=== PATIENT | female | born 1930 | race Caucasian/White ===

== ENCOUNTER 2017-02-01 10:04 | Outpatient (CLI) | payer MEDICARE, OTHER ==
[2017-02-01 15:21] LABS: Bilirubin Negative (Negative); Blood, Urine Negative (Negative); Glucose, Urine (Dipstick) Negative (Negative); Ketone, Urine Negative (Negative); Nitrite Negative (Negative); Protein, Urine (Dipstick) Negative (Neg-Trace); Urobilinogen 0.2 mg/dL (0.2-1.0)
[2017-02-01 15:22] LABS: Bacteria/HPF None Seen HPF (None Seen); Hyaline Casts/LPF 0-3 HYALINE CAST LPF (0-3 Hyaline); Squamous Epithelial 0-3 HPF (0-3); WBC/HPF 0-3 HPF (0-3)
--- NOTE | 2017-02-02 10:01 | EKG ---
Test Reason : ? SURGICAL WORKUP Blood Pressure : / mmHG Vent. Rate : 087 BPM Atrial Rate : 087 BPM P-R Int : 142 ms QRS Dur : 072 ms QT Int : 388 ms P-R-T Axes : 080 084 067 degrees QTc Int : 466 ms Normal sinus rhythm Normal ECG When compared with ECG of 09-NOV-2006 09:51, No significant change was found Confirmed by SY JEREZ ([id number]) on 02/02/2017 10:00:53 AM Referred By: AMBROCIO Confirmed By:SY JEREZ
== END 2017-02-01 10:05 | disposition home or self-care (01) ==
LOC: EKG 10:04
PROVIDERS: ATTEND Urology
DX: Z01.818 Encounter for other preprocedural examination (principal); N21.0 Calculus in bladder; N30.20 Other chronic cystitis without hematuria; R35.0 Frequency of micturition
CPT/HCPCS: 81001; 87077; 87086; 87186; 93005; 93010

== ENCOUNTER 2017-02-04 10:53 | Outpatient (CLI) | payer MEDICARE, OTHER ==
[2017-02-04 12:04] LABS: Hematocrit 44.5 % (36.0-47.0); Mean Platelet Volume 6.8 fL (7.4-10.4); Red Blood Cell (RBC) Count 4.63 mill/uL (4.20-5.40); White Blood Cell (WBC) Count 9.6 thou/uL (4.8-10.8)
[2017-02-04 12:20] LABS: Anion Gap 15 mmol/L (10-20); BUN (Urea Nitrogen) 18 mg/dL (9.8-20.1); Calc. Creatinine Clearance 0 mL/min (70-130); Calcium 9.6 mg/dL (7.8-10.44); Carbon Dioxide 22 mmol/L (23-31); Chloride 104 mmol/L (98-107); Estimated GFR-MDRD 75
== END 2017-02-04 10:54 | disposition home or self-care (01) ==
LOC: LABBT 10:53
PROVIDERS: ATTEND Urology
DX: Z01.818 Encounter for other preprocedural examination (principal); N21.0 Calculus in bladder
CPT/HCPCS: 80048; 85027

== ENCOUNTER 2017-02-09 05:40 | Day surgery (SDC) | payer MEDICARE, OTHER ==
[2017-02-04 11:07] VITALS: BMI 25.8
[2017-02-09] MEDS ORDERED: Vancomycin HCl 500 MG VIAL ONE (07:29)
[2017-02-09] MEDS ORDERED: Fentanyl 100 MCG/2 ML VIAL ONE (09:01)
[2017-02-09] MEDS ORDERED: Ondansetron HCl/PF 4 MG/2 ML Vial ONE (09:27)
[2017-02-09] MEDS ORDERED: Propofol 200 MG/20 ML VIAL ONE (09:27)
[2017-02-09] MEDS ORDERED: Lidocaine 1% PF 5 ML VIAL ONE (09:27)
[2017-02-09] MEDS ORDERED: Dexamethasone 20 MG/5 ML VIAL ONE (09:27)
--- NOTE | 2017-02-09 11:18 | OP ---
DATE OF PROCEDURE: 02/09/2017 PREOPERATIVE DIAGNOSIS: Bladder stone urinary tract infection. POSTOPERATIVE DIAGNOSIS: Bladder stone urinary tract infection. PROCEDURE PERFORMED: Cystolitholapaxy with holmium laser lithotripsy. SURGEON: Dr. Ventura. ANESTHESIA: General with laryngeal mask airway. FINDINGS: Adequate fragmentation of stone and adequate irrigation of all the fragments out. COMPLICATIONS: None. ESTIMATED BLOOD LOSS: None. DRAINS: Drain remaining was an 18 Bruneian Madden. INDICATIONS: The patient is an 86-year-old female who is followed in the office for UTIs and cystos copy revealed a bladder stone, so she was set up for cystolitholapaxy. TECHNIQUE: The patient was brought in the room by anesthesia lying on table in supine position. Af ter receiving general anesthetic, her legs were placed in lithotomy position and her perineum was pr epped and draped in sterile fashion. Using a 22-Bruneian cystoscope and a 30-degree lens, it was namita ersed and the bladder inspected. No lesions were noted. There was a large stone approximately 2-3 cm in diameter noted at the base of the bladder. A 4 x 4 was placed in the vagina to elevate her cy stocele to aid in localization of the stone, so that it would not be trapped in a sulcus. Then, the laser lithotripsy was used and bursted into 4-5 fragments, which were all removed with a 25-Bruneian cystoscope. The 22 was put back in and small fragments were noted with some stone debris, so this wa s evacuated out with the Ellik. A final look in revealed no concerning fragments or debris and so t he cystoscope was removed in its entirety and an 18 Bruneian Madden was placed to gravity. The patient tolerated the procedure well and was then awakened and transferred back in stable condition.
[2017-02-12 12:14] LABS: CA Oxalate Dihydrate 20 % (.); CA Oxalate Monohydrate 70 % (.); CA Phosphate 10 % (.); Color Brown (.)
== END 2017-02-09 12:00 | disposition home or self-care (01) ==
LOC: SDC 05:40
PROVIDERS: ATTEND Urology
PROC: 0TCB8ZZ Extirpation of Matter from Bladder, Via Natural or Artificial Opening Endoscopic (ICD-10-PCS; principal; 2017-02-09)
DX: N21.0 Calculus in bladder (principal); N30.90 Cystitis, unspecified without hematuria; K58.9 Irritable bowel syndrome, unspecified; E11.9 Type 2 diabetes mellitus without complications; E78.5 Hyperlipidemia, unspecified; J30.2 Other seasonal allergic rhinitis; M10.9 Gout, unspecified; Z90.710 Acquired absence of both cervix and uterus; Z90.49 Acquired absence of other specified parts of digestive tract; Z98.49 Cataract extraction status, unspecified eye; Z79.84 Long term (current) use of oral hypoglycemic drugs; Z79.818 Long term (current) use of other agents affecting estrogen receptors and estrogen levels; Z88.1 Allergy status to other antibiotic agents; Z88.4 Allergy status to anesthetic agent; Z88.2 Allergy status to sulfonamides; Z88.5 Allergy status to narcotic agent; Z88.6 Allergy status to analgesic agent; Z88.8 Allergy status to other drugs, medicaments and biological substances
CPT/HCPCS: 82365; 88300; J1100; J2001; J2405; J2704; J3010; J3370

== ENCOUNTER 2017-04-13 08:00 | Outpatient (CLI) | payer MEDICARE, OTHER | END 2017-04-13 08:01 | disposition home or self-care (01) | LOC: BICMAMMO 08:00 | PROVIDERS: ATTEND Family Medicine | DX: Z53.9 Procedure and treatment not carried out, unspecified reason (principal) ==

== ENCOUNTER 2017-04-27 07:50 | Outpatient (CLI) | payer MEDICARE, OTHER | END 2017-04-27 07:51 | disposition home or self-care (01) | LOC: BICMAMMO 07:50 | PROVIDERS: ATTEND Family Medicine | DX: Z12.31 Encounter for screening mammogram for malignant neoplasm of breast (principal); Z80.3 Family history of malignant neoplasm of breast | CPT/HCPCS: 77063; G0202; 77067 ==

== ENCOUNTER 2018-07-09 17:25 | Observation (INO) | payer MEDICARE, OTHER ==
[2018-07-09 18:09] LABS: #Eosinphils 0.2 thou/uL (0.0-0.7); #Monocytes 0.5 thou/uL (0.11-0.59); #Neutrophils 5.8 thou/uL (1.40-6.50); %Basophils 0.5 % (0.0-1.0); %Eosinophils 2.7 % (0.0-10.0); %Lymphocytes 13.5 % (21.0-51.0); %Neutrophils 76.2 % (42.0-75.0); Hemoglobin 13.6 g/dL (12.0-16.0); Mean Corpuscular HGB CONC 33.4 g/dL (32.0-36.0); Mean Corpuscular Hemoglobin 31.3 pg (27.0-31.0); Mean Corpuscular Volume 93.6 fL (78.0-98.0); Mean Platelet Volume 7.6 fL (7.4-10.4); Platelet Count 226 thou/uL (130-400); RBC Distribution Width 11.4 % (11.5-14.5); Red Blood Cell (RBC) Count 4.35 mill/uL (4.20-5.40); White Blood Cell (WBC) Count 7.7 thou/uL (4.8-10.8)
[2018-07-09 18:17] LABS: PTT 27.7 SEC (22.9-36.1); Prothrombin Time 13.6 SEC (12.0-14.7)
[2018-07-09 18:31] LABS: ALT (SGPT) 16 U/L (8-55); AST (SGOT) 15 U/L (5-34); Alkaline Phosphatase 88 U/L (40-150); Anion Gap 16 mmol/L (10-20); BUN (Urea Nitrogen) 19 mg/dL (9.8-20.1); Bilirubin, Total 0.4 mg/dL (0.2-1.2); CK (CPK) 43 U/L (29-168); Calc. Creatinine Clearance 0 mL/min (70-130); Calcium 9.9 mg/dL (7.8-10.44); Carbon Dioxide 23 mmol/L (23-31); Chloride 105 mmol/L (98-107); Estimated GFR-MDRD 63; Globulin 2.9 g/dL (2.4-3.5); Glucose 153 mg/dL (83-110); Lipase 33 U/L (8-78); Potassium 4.3 mmol/L (3.5-5.1); Protein, Total 6.9 g/dL (6.0-8.3); Sodium 140 mmol/L (136-145)
--- NOTE | 2018-07-09 19:00 | RAD ---
AP VIEW CHEST 07/09/18 HISTORY: Altered mental status. AP view chest is obtained on 07/09/18. EKG leads seen over the chest. calcification of the aorta is seen. The lungs are well aerated. No ev idence of active intrathoracic disease seen. No evidence of effusions, pneumonia or pneumothorax seen . IMPRESSION: Calcification of the aorta otherwise unremarkable AP view chest. POS: [facility]
[2018-07-09] MEDS ORDERED: Pantoprazole 40 MG VIAL ONE (19:17)
[2018-07-09 20:13] LABS: Bilirubin Negative (Negative); Blood, Urine Moderate (Negative); Clarity CLEAR (Clear); Glucose, Urine (Dipstick) Negative (Negative); Leukocyte Trace (Negative); Nitrite Negative (Negative); Protein, Urine (Dipstick) Negative (Neg-Trace); Urobilinogen 0.2 mg/dL (0.2-1.0)
[2018-07-09 20:16] LABS: Bacteria/HPF 2+ HPF (None Seen); Hyaline Casts/LPF 0-3 HYALINE CAST LPF (0-3 Hyaline); Pathc Cast-AUWi Flag 0.29 (0-2.49); RBC/HPF 0-3 HPF (0-3); Squamous Epithelial 0-3 HPF (0-3); WBC/HPF 0-3 HPF (0-3)
[2018-07-09] MEDS ORDERED: Ondansetron PF 4 MG/2 ML Vial IVP PRN (20:58)
[2018-07-09] MEDS ORDERED: Ondansetron ODT 4 MG TAB SL PRN (20:58)
[2018-07-09] MEDS ORDERED: Dextrose 5% in Water 1,000 ML IV PRN (21:07)
[2018-07-09] MEDS ORDERED: Dextrose 50% Abboject 50 ML SYRINGE SLOW IVP PRN (21:07)
[2018-07-09] MEDS ORDERED: HumaLOG 300 UNITS/3 ML VIAL SC PRN ×2 (21:07)
[2018-07-09] MEDS ORDERED: Zolpidem Tartrate 5 MG TAB PO SCH (22:00)
[2018-07-09] MEDS: Zolpidem Tartrate 5 MG TAB PO SCH (22:04)
[2018-07-09 22:42] LABS: Hemoglobin 12.2 g/dL (12.0-16.0)
--- NOTE | 2018-07-10 01:55 | HP ---
CHIEF COMPLAINT: Rectal bleeding. HISTORY OF PRESENT ILLNESS: Ms. Best is a pleasant 88-year-old woman who presents with complaints of rectal bleeding that started this afternoon. She said she went to urinate and noted blood after wiping. She was able to determine it was from the rectum. She began to experience continuous bleeding and denies having any bowel movements. She passed some bright red blood and a few blood clots. Following arrival to the ED , she was given pantoprazole 40 mg IV. The patient states her bleeding settled shortly after. She denies any associated abdominal or rectal pain. She has not experienced any nausea, vomiting, or hematemesis. She reports a history of ruptured polyp in the past and states her last colonoscopy was approximately 5 years ago. REVIEW OF SYSTEMS: The patient denies having any fevers, chills, or sweats. Denies having any recent changes with her appetite and has not had any changes in her weight. Denies having any headaches or dizziness. No shortness of breath. Denies issues with constipation or diarrhea. Also denies having any urinary symptoms. All other review of systems are negative. PAST MEDICAL HISTORY: 1. Gallstones. 2. Type 2 diabetes. 3. Hypertension. PAST SURGICAL HISTORY: 1. Cholecystectomy. 2. Appendectomy. 3. Hysterectomy. 4. Surgery due to ruptured polyp. SOCIAL HISTORY: She denied any alcohol use to me; however, per ED note, it states she drinks daily, less than 5 drinks per day. Denies any drug use and denies any tobacco use. ALLERGIES: ACETAMINOPHEN, AZITHROMYCIN, BETAMETHASONE, BUPIVACAINE, CIPROFLOXACIN, CODEINE, CYPROHEPTADINE, DEMECLOCYCLINE, EPINEPHRINE, LIDOCAINE, SULFA, ORAHUT CURRENT MEDICATIONS: Patient does not recall, her son will bring her list. PHYSICAL EXAMINATION: GENERAL: The patient appears well developed, well nourished, and in no acute distress. VITAL SIGNS: Temperature 98.2, pulse 86, respirations 20, O2 saturation 100% on room air, and blood pressure 178/80. HEENT: Normocephalic and atraumatic. Pupils are equal, round, and reactive to light. Sclerae icterus. Oropharynx is clear. NECK: Supple. No lymphadenopathy. LUNGS: Clear to auscultation bilaterally. CARDIAC: Regular rate and rhythm. ABDOMEN: Soft, nontender, and nondistended. Normoactive bowel sounds present. No guarding or rigidity. EXTREMITIES: Without edema or swelling. NEUROLOGIC: Alert and oriented x3. SKIN: Without rash, pallor, or jaundice. RECTAL: Deferred as the patient states she was examined in the ED. I did receive confirmation from ED physician that she had bright red blood per rectum on examination with no pain. She was noted to have external hemorrhoids. No palpable masses in the rectal vault. LABORATORY DATA: White blood cell count 7.7, hemoglobin 13.6, hematocrit 40.7, and platelets 226. PT 13.6, INR 1.0, and PTT 27.7. Sodium 140, potassium 4.3, anion gap 16, BUN 19, creatinine 0.86, GFR 63, glucose 153, calcium 9.9. Total bilirubin 0.4, AST 15, ALT 16, and alkaline phosphatase 88. Creatine kinase 43. Troponin negative. BNP 43.7, lipase 33. Urinalysis notable for moderate blood, trace leukocyte esterase, 2+ bacteria. Sample likely contaminated. She has no urinary symptoms. IMAGING DATA: Chest x-ray showed calcification of the aorta, otherwise was unremarkable. IMPRESSION AND PLAN: Ms. Best is a very pleasant 88-year-old woman being admitted for management of the following; 1. Rectal bleeding. At present, the rectal bleeding has settled. Her hemoglobin was 13.6. We will continue to monitor her hemoglobin and hematocrit. Consultation placed with Gastroenterology. 2. Hypertension. We will resume her home medications and monitor blood pressure. 3. Type 2 diabetes mellitus. We will resume home medications and monitor glucose. 4. Gastrointestinal prophylaxis. 5. Deep venous thrombosis prophylaxis with mechanical sequential compression devices only. No anticoagulation given active bleeding. 6. Per the patient, advanced directives are in place. Her surrogate decision maker is her son, Jhony Best, who can be reached at [phone]. The patient's case was discussed with Dr. Valerio, who agrees with plan of care as described above. Job ID: [id number] [facility]
[2018-07-10 05:29] LABS: #Eosinphils 0.3 thou/uL (0.0-0.7); #Lymphocytes 1.6 thou/uL (1.20-3.40); #Monocytes 0.7 thou/uL (0.11-0.59); #Neutrophils 4.2 thou/uL (1.40-6.50); %Basophils 0.6 % (0.0-1.0); %Eosinophils 4.5 % (0.0-10.0); %Lymphocytes 23.1 % (21.0-51.0); %Monocytes 9.9 % (0.0-10.0); Hemoglobin 11.1 g/dL (12.0-16.0); Mean Corpuscular HGB CONC 32.7 g/dL (32.0-36.0); Mean Corpuscular Hemoglobin 31.5 pg (27.0-31.0); Mean Corpuscular Volume 96.5 fL (78.0-98.0); Mean Platelet Volume 7.4 fL (7.4-10.4); Platelet Count 194 thou/uL (130-400); RBC Distribution Width 11.3 % (11.5-14.5); Red Blood Cell (RBC) Count 3.52 mill/uL (4.20-5.40); White Blood Cell (WBC) Count 6.7 thou/uL (4.8-10.8)
[2018-07-10 05:45] LABS: Anion Gap 11 mmol/L (10-20); BUN (Urea Nitrogen) 14 mg/dL (9.8-20.1); Calc. Creatinine Clearance 0 mL/min (70-130); Calcium 8.8 mg/dL (7.8-10.44); Carbon Dioxide 27 mmol/L (23-31); Chloride 109 mmol/L (98-107); Estimated GFR-MDRD 79; Glucose 108 mg/dL (83-110); Potassium 4.2 mmol/L (3.5-5.1); Sodium 143 mmol/L (136-145)
[2018-07-10] MEDS: Sodium Chloride 0.9% 1,000 ML IV SCH ×2 (05:55→17:14)
[2018-07-10] MEDS ORDERED: Aspirin 81 mg Enteric Coated Tablet PO SCH (09:00)
[2018-07-10] MEDS ORDERED: Lisinopril 2.5 MG TAB PO SCH (09:00)
[2018-07-10] MEDS: metFORMIN 500 MG TAB PO SCH ×2 (09:27→17:01)
[2018-07-10] MEDS: Trospium 20 MG TAB PO SCH ×2 (09:27→20:21)
[2018-07-10] MEDS: Cetirizine HCl 10 MG TAB PO SCH (09:27)
[2018-07-10] MEDS: Famotidine/PF 20 mg/2ml Vial SLOW IVP SCH ×2 (09:27→20:21)
[2018-07-10 10:13] VITALS: BMI 25.1
[2018-07-10 13:25] LABS: Hemoglobin 11.6 g/dL (12.0-16.0)
--- NOTE | 2018-07-10 17:31 | PDOC.PN ---
- Subjective Encounter Start Date: 07/10/18 Encounter Start Time: 10:00 The patient is a very pleasant 88 year old female with PMH significant for HTN, Type II DM, and Hx of colon polyp in the past, who presented to the hospital with complaints of rectal bleeding. She did not have any bleeding events overnight. She has denies any CP, SOB, dizziness, or lightheadedness. She has ambulated to the bathroom with out issue. Son is at bedside and care discussed. - Objective Vital Signs & Weight: Vital Signs (12 hours) Temp Pulse Resp BP BP Pulse Ox 07/10/18 15:58 98.0 F 85 12 164/84 H 98 07/10/18 11:31 97.9 F 77 16 163/80 H 92 L 07/10/18 09:27 83 161/88 H 07/10/18 08:21 98.2 F 83 14 161/88 H 99 Weight Weight 146 lb 4.8 oz Result Diagrams: 07/10/18 13:11 07/10/18 04:39 Additional Labs: Accuchecks 07/10/18 07/10/18 15:48 11:07 POC Glucose 117 H 117 H Phys Exam - Physical Examination HEENT: PERRLA Neck: no nodes, no JVD Respiratory: no wheezing, no rales, no rhonchi, clear to auscultation bilateral Cardiovascular: RRR, no significant murmur Gastrointestinal: soft, non-tender, no distention Musculoskeletal: no edema, pulses present Neurological: non-focal Lymphatic: no nodes Psychiatric: normal affect, A&O x 3 Skin: no rash Dx/Plan (1) Hemorrhage of anus and rectum Code(s): K62.5 - HEMORRHAGE OF ANUS AND RECTUM Status: Acute (2) External hemorrhoids Code(s): K64.4 - RESIDUAL HEMORRHOIDAL SKIN TAGS Status: Acute (3) Type II diabetes mellitus Status: Chronic Qualifiers: Diabetes mellitus complication status: without complication (4) Hypertension Code(s): I10 - ESSENTIAL (PRIMARY) HYPERTENSION Status: Chronic Qualifiers: Hypertension type: essential hypertension Qualified Code(s): I10 - Essential (primary) hypertension (5) Anemia Code(s): D64.9 - ANEMIA, UNSPECIFIED Status: Acute Qualifiers: Anemia type: iron deficiency - Plan * . The patient is a pleasant 88 year old who has presented with painless rectal bleeding; her Hgb has drifted from 13.6 to 11.6, although some of this may be delutional. She had had no further bleeding up until this afternoon, when she did pass some blood in her stool. Dr. Ramey has seen the patient and recommended serial Hgb and to watch overnight. She has been placed on clear liquid diet. Given her advanced age, she is at high risk for decompensation. She has been hypertensive in the 160s; will continue to titrate BP meds as needed. Review of Systems - Review of Systems Constitutional: negative: fever, chills, sweats ENT: negative: Ear Pain, Ear Discharge Respiratory: negative: Cough, Shortness of Breath Cardiovascular: negative: chest pain, palpitations, light headedness Gastrointestinal: Hematochezia Genitourinary: negative: Dysuria, Frequency Skin: negative: Rash Neurological: negative: Weakness, Numbness - Medications/Allergies Allergies/Adverse Reactions: Allergies Allergy/AdvReac Type Severity Reaction Status Date / Time acetaminophen [From Tylenol] Allergy Verified 07/09/18 22:45 azithromycin [From Zithromax] Allergy Verified 07/09/18 22:45 betamethasone Allergy Verified 07/09/18 22:45 [From Celestone] bupivacaine [From Marcaine] Allergy Verified 07/09/18 22:45 ciprofloxacin [From Cipro] Allergy Verified 07/09/18 22:45 codeine Allergy Verified 07/09/18 22:45 cyproheptadine Allergy Verified 07/09/18 22:45 demeclocycline Allergy Verified 07/09/18 22:45 [From Declomycin] epinephrine Allergy Verified 07/09/18 22:45 [From Xylocaine-Epinephrine] lidocaine Allergy Verified 07/09/18 22:45 [From Xylocaine-Epinephrine] Sulfa (Sulfonamide Allergy Verified 07/09/18 22:45 Antibiotics) orahut Allergy Uncoded 07/09/18 22:45 Medications: Current Medications Aspirin (Ecotrin) 81 mg PO DAILY [facility] Last Admin: 07/10/18 11:08 Dose: Not Given Cetirizine HCl (Zyrtec) 10 mg PO DAILY [facility] Last Admin: 07/10/18 09:27 Dose: Not Given Dextrose/Water (Dextrose 50%) 25 gm SLOW IVP PRN PRN PRN Reason: Hypoglycemia Famotidine (Pepcid) 20 mg SLOW IVP BID [facility] Last Admin: 07/10/18 09:27 Dose: 20 mg Glucagon (Glucagon) 1 mg IM PRN PRN PRN Reason: Hypoglycemia Dextrose/Water (D5w) 1,000 mls @ 0 mls/hr IV .Q0M PRN PRN Reason: Hypoglycemia Insulin Human Lispro (Humalog) 0 units SC .MILD SLIDING SCALE PRN PRN Reason: Mild Correctional Scale Insulin Human Lispro (Humalog) 0 units SC .BEDTIME SLIDING SC PRN PRN Reason: Bedtime Correctional Scale Lisinopril (Zestril) 2.5 mg PO DAILY [facility] Last Admin: 07/10/18 09:27 Dose: 2.5 mg Metformin HCl (Glucophage) 1,000 mg PO BID-[facility] Last Admin: 07/10/18 17:01 Dose: 1,000 mg Trospium (Trospium) 20 mg PO BID [facility] Last Admin: 07/10/18 09:27 Dose: Not Given Zolpidem Tartrate (Ambien) 5 mg PO [facility]
--- NOTE | 2018-07-10 19:44 | CON ---
DATE OF CONSULTATION: 07/10/2018 REASON FOR CONSULT: Rectal bleed. HISTORY OF PRESENT ILLNESS: Ms. Violeta Bets is an 88-year-old female, who came to the emergency room yesterday as she had 1 episode of rectal bleeding. She notes that she typically has issues with incontinence of her stools loose, she usually take medicines to keep it a little bit more formed on the constipation side. She reports yesterday afternoon she had a bowel movement that was with no overt constipation or pain or discomfort. When she went to wipe, she notes some blood on the tissue. She wiped several times and kept seeing some blood. She lives alone and she felt fine, but she was not sure what to do. She remembered she had a lifeline, so she called [facility] and they told her they had an ambulance on the way for her. She was brought here to the emergency room. This was at about 3 yesterday afternoon. She reports that she had no further bowel movements after that. At the time it happened, the blood was bright red. There were a few small clots. She had no associated rectal or abdominal pain. She has been n.p.o. since that time. She was admitted about midnight and has had no bleeding since that time. She is on IV fluids at 60 mL an hour and she has received 40 of Protonix once. She has had no episodes of nausea, vomiting, hematemesis, or melena. She had a "ruptured polyp in the past 50 years ago when she was in her 30s". The admission H and P notes she had a colonoscopy about 5 years ago. I described the procedure to her. She states she does not really think she had a colonoscopy 5 years ago. She is not sure she has ever had 1, although she assumes that she had 1 when she had a "ruptured polyp" 50 years ago. At present, Ms. Best is hungry and is without complaints. She has had no bowel movement since admission. REVIEW OF SYSTEMS: Negative for weight loss or abdominal pain. She does have no previous history of constipation. She does have diarrhea and incontinence, her stools were too loose. She usually take fuvp-[id number] medicines for that. She reports she has not seen a no bake molder in the past for this. She has had no weight loss or change in appetite. She has had no fever or chills. No shortness of breath, dyspnea on exertion, syncopal or presyncopal episodes, or seizures. review of system is notable for the fact that she has had some bladder problems in about 2 years ago, had a bladder stone and associated bladder infection. PAST MEDICAL HISTORY: 1. Type 2 diabetes, hypertension, recurrent bladder infections in the past. 2. History of gallstones. 3. History of bladder stones. 4. History of IBS. PAST SURGICAL HISTORY: 1. Cholecystectomy, appendectomy, and hysterectomy. Fifty years ago, she had some type of procedure for a "ruptured polyp" maybe this was a hemorrhoid, it is unclear. 2. She has had bladder surgery for a bladder stone. 3. Benign breast surgery in 2006, cataract surgery also, benign hysterectomy, and benign foot surgery. FAMILY HISTORY: Father had Alzheimer's. Mother had a stroke, hypertension, and heart disease. There is no family history of colorectal cancer or liver disease. SOCIAL HISTORY: She does not smoke. She does drink wine occasionally on weekends. She does not use drugs. PHYSICAL EXAMINATION: GENERAL: The patient is resting comfortably in bed. She is in no distress. She has 2 family members at the bedside, 1 of which is her son. She is alert and oriented to person, place, and time. Seems younger than her stated age. VITAL SIGNS: Temperature is 97.9, she has been afebrile since admission. Pulse 77, blood pressure 161/81, respirations 16, and O2 saturation 99% to 92%. HEENT: Conjunctivae and sclerae are clear. Oropharynx is moist with good color. She does not appear pale. NECK: Supple. There is no adenopathy. There is no JVD. LUNGS: Clear. HEART: Regular rate and rhythm. ABDOMEN: Soft and nontender. No rebound or guarding. RECTAL: Reveals possibly small internal hemorrhoids, but no overt masses or lesions. There is no blood on the examining glove. There is no tenderness noted. LABORATORY STUDIES: Hemoglobin 11.6, it was 11.1 at 4 this morning, it was 12.2 on the 2nd, and initially 13.6 when she presented yesterday. Her baseline hemoglobin back in May was 14 as it was last summer. Chemistries notable for BUN and creatinine are 19 and 0.8 yesterday, and 14 and 0.7 today. Liver function tests normal. Lipase normal. ASSESSMENT AND PLAN: Lower gastrointestinal bleeding with 1 episode of bleeding, now resolved. This is painless. Differential diagnosis would include hemorrhoidal sources, diverticular sources, colitis or malignancy seems less likely. I have talked with the patient and family about options, we could proceed with colonoscopy tomorrow to further evaluate the colon for etiologies or we could wait to see if she has no further bleeding, treat her with topical steroids for possible rectal bleeding and observe and only intervene if she would have further bleeding. She prefers the noninvasive route. Therefore, we will let her eat, Hep-Lock her IV, and recheck her hemoglobin tomorrow. If there is further bleeding, obviously we have to change our plans and then reconsider endoscopy. Job ID: [id number]
[2018-07-10] MEDS: Zolpidem Tartrate 5 MG TAB PO SCH (21:53)
[2018-07-11 06:04] LABS: Hemoglobin 11.8 g/dL (12.0-16.0)
[2018-07-11 06:26] LABS: Iron 71 ug/dL (50-170); Iron Binding Capacity, Total 233 mcg/dL (265-497)
[2018-07-11] MEDS: metFORMIN 500 MG TAB PO SCH (08:31)
[2018-07-11] MEDS: Famotidine/PF 20 mg/2ml Vial SLOW IVP SCH (08:32)
[2018-07-11] MEDS: Cetirizine HCl 10 MG TAB PO SCH (08:32)
[2018-07-11] MEDS ORDERED: Lisinopril 5 MG TAB PO SCH (09:00)
[2018-07-11] MEDS ORDERED: Multivit, Therapeutic 1 TAB PO SCH (09:00)
[2018-07-11] MEDS ORDERED: Cyanocobalamin (Vitamin B-12) 1,000 MCG TAB PO SCH (09:00)
[2018-07-11 11:06] VITALS: BP 139/77; TEMP 97.7
[2018-07-11] MEDS: Trospium 20 MG TAB PO SCH (11:44)
--- NOTE | 2018-07-11 16:17 | PRG ---
DATE OF SERVICE: 07/11/2018 SUBJECTIVE: Ms. Best had no further bleeding. Today, she had a bowel movement with no blood. OBJECTIVE: VITAL SIGNS: Temperature 97.6, pulse 77, blood pressure 139/77. ABDOMEN: Soft, nontender. NEUROLOGIC: She is awake, alert, and oriented to person, place, and time. She lives nearby and wants to go home. LABORATORY DATA: Hemoglobin is 11.8. ASSESSMENT: Lower gastrointestinal bleeding, resolved. This could have been diverticular or hemorrhoidal. The possibility of colon mass is possible, but the type of bleeding she had was painless and lend itself against that. A mild ischemic colitis I guess is always possible, but she again did not have any overt pain with this. PLAN: She can go home on a regular diet. She will follow up with us in our office in 1 week and she has been given bleeding precautions and advised to avoid NSAIDs for at least 2 weeks. Job ID: [id number]
--- NOTE | 2018-07-11 19:42 | DIS ---
DATE OF ADMISSION: 07/09/2018 DATE OF DISCHARGE: 07/11/2018 DISCHARGE DISPOSITION: Home. FOLLOWUP: Follow up with primary care physician, Dr. Trenton Prasad in 1 week. DISCHARGE MEDICATIONS: Same as admission medications. The patient was advised to hold aspirin for a week per GI recommendation. The patient was seen and examined on the day of discharge. Denies any new complaints. No chest pain, shortness of breath, palpitations, or GI bleeding reported. BRIEF HOSPITAL COURSE: The patient is an 88-year-old female with diverticulosis, presented to the emergency room with rectal bleeding. Please refer to the history and physical dated July,, for further details. The patient was admitted to the hospital with a diagnosis of GI bleeding. She was monitored on the medical floor. Her hemoglobin on admission was 13.6, that dropped to 11.1. It has remained stable over 11 over the last 24 hours. She had normal soft bowel movement earlier today without any bleeding. The patient was evaluated by Gastroenterology. Colonoscopy was offered; however, the patient declined. She was advised to hold aspirin for 1 week. She was advised to contact Dr. Ramey as outpatient if she develops any new bleeding. Most likely the bleeding was from diverticula versus hemorrhoidal. FINAL DIAGNOSES: 1. Painless lower gastrointestinal bleeding, suspected secondary to diverticular bleed versus hemorrhoidal bleeding. 2. Acute blood loss anemia. 3. Diabetes mellitus, type 2. 4. Hypertension. 5. History of cholelithiasis. 6. Chronic kidney disease, stage 2. SIGNIFICANT LABORATORY DATA: Troponin was negative. Iron was 71, TIBC 233, ferritin 74.3. Urinalysis was negative for WBC, however, it showed 2+ bacteria. Plan was discussed with the patient in detail. She stated understanding. Job ID: [id number]
== END 2018-07-11 14:16 | disposition home or self-care (01) ==
LOC: ERS 17:25 → SURG A 19:04
PROVIDERS: ADMIT Hospitalist; ATTEND Hospitalist
DX: K62.5 Hemorrhage of anus and rectum (principal); D62 Acute posthemorrhagic anemia; I12.9 Hypertensive chronic kidney disease with stage 1 through stage 4 chronic kidney disease, or unspecified chronic kidney disease; E11.22 Type 2 diabetes mellitus with diabetic chronic kidney disease; N18.2 Chronic kidney disease, stage 2 (mild); K58.9 Irritable bowel syndrome, unspecified; Z86.010 Personal history of colon polyps; Z79.82 Long term (current) use of aspirin; Z79.84 Long term (current) use of oral hypoglycemic drugs; Z79.899 Other long term (current) drug therapy; Z88.1 Allergy status to other antibiotic agents; Z88.2 Allergy status to sulfonamides; Z88.5 Allergy status to narcotic agent; Z88.8 Allergy status to other drugs, medicaments and biological substances; Z98.890 Other specified postprocedural states
CPT/HCPCS: 71045; 80048; 80053; 82550; 82728; 82962 ×2; 83540; 83550; 83690; 83880; 84484; 85014 ×4; 85018 ×3; 85025 ×2; 85610; 85730; 86850; 86900; 86901; 87086; 93005; 96374; 96375; 96376; 99285; G0378 ×2; 36415; 36416; 81003; 81015; 96361; C9113; S0028

== ENCOUNTER 2018-07-12 16:10 | Emergency (ER) | payer MEDICARE, OTHER ==
[2018-07-12 18:38] LABS: #Eosinphils 0.3 thou/uL (0.0-0.7); #Lymphocytes 1.4 thou/uL (1.20-3.40); #Monocytes 0.7 thou/uL (0.11-0.59); #Neutrophils 5.5 thou/uL (1.40-6.50); %Basophils 0.4 % (0.0-1.0); %Eosinophils 3.7 % (0.0-10.0); %Lymphocytes 17.2 % (21.0-51.0); %Monocytes 8.7 % (0.0-10.0); Mean Corpuscular HGB CONC 33.2 g/dL (32.0-36.0); Mean Corpuscular Volume 93.3 fL (78.0-98.0); Mean Platelet Volume 8.3 fL (7.4-10.4); Platelet Count 189 thou/uL (130-400); RBC Distribution Width 11.5 % (11.5-14.5); Red Blood Cell (RBC) Count 3.87 mill/uL (4.20-5.40); White Blood Cell (WBC) Count 7.9 thou/uL (4.8-10.8)
[2018-07-12 18:49] LABS: ALT (SGPT) 17 U/L (8-55); AST (SGOT) 17 U/L (5-34); Albumin 3.8 g/dL (3.4-4.8); Alkaline Phosphatase 81 U/L (40-150); Anion Gap 12 mmol/L (10-20); BUN (Urea Nitrogen) 19 mg/dL (9.8-20.1); Bilirubin, Total 0.8 mg/dL (0.2-1.2); Calc. Creatinine Clearance 0 mL/min (70-130); Calcium 9.5 mg/dL (7.8-10.44); Carbon Dioxide 24 mmol/L (23-31); Chloride 105 mmol/L (98-107); Estimated GFR-MDRD 72; Globulin 2.7 g/dL (2.4-3.5); Glucose 123 mg/dL (83-110); Potassium 4.1 mmol/L (3.5-5.1); Protein, Total 6.5 g/dL (6.0-8.3); Sodium 137 mmol/L (136-145)
== END 2018-07-12 21:09 | disposition home or self-care (01) ==
LOC: ERS 16:10
DX: K62.5 Hemorrhage of anus and rectum (principal); E11.9 Type 2 diabetes mellitus without complications; I10 Essential (primary) hypertension; Z79.899 Other long term (current) drug therapy; Z79.84 Long term (current) use of oral hypoglycemic drugs
CPT/HCPCS: 36415; 80053; 85025; 99283